=== PATIENT | male | born 1970 | race Caucasian/White ===

== ENCOUNTER 2024-12-19 15:31 | Observation (INO) ==
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
[2024-12-19] MEDS: ASPIRIN CHEW 324 MG PO STA (15:54)
--- NOTE | 2024-12-19 15:58 | XRay Report ---
XR chest 1V portable CLINICAL HISTORY: Chest pain, nonspecific COMPARISON STUDY: None FINDINGS: Heart size and pulmonary vasculature are normal. No consolidation or pleural effusion. No p neumothorax. There is an old left-sided rib fracture. IMPRESSION: No acute findings. ACT 112: Negative or not required by law. Electronically signed by: Rogelio Odonnell M.D. 12/19/2024 3:56 PM
[2024-12-19 16:00] LABS: Hematocrit (blood only) 38.4 % (42.0-52.0); Hemoglobin 13.2 g/dl (14.0-18.0); Immature Granulocytes # (auto) 0.02 K/uL (0.01-0.20); Immature Granulocytes % (auto) 0.2 %; Mean Corpuscular Hemoglobin 31.3 pg (25.0-34.0); Mean Corpuscular Volume 91.0 fL (80.0-100.0); Platelet Count 439 K/uL (130-400); RDW Standard Deviation 42.7 fL (36.4-46.3); Red Blood Count 4.22 M/uL (4.70-6.10); White Blood Count 8.29 K/ul (4.8-10.8)
[2024-12-19 16:17] LABS: Alanine Aminotransferase 13.0 U/L (7-52); Albumin Globulin Ratio 1.5 (0.9-2); Albumin Level 4.1 gm/dl (3.4-5.0); Alkaline Phosphatase 56.0 U/L (34-104); Anion Gap 7.0 (3-11); Bilirubin,Total 0.6 mg/dl (0.2-1.0); Blood Urea Nitrogen 16.0 mg/dl (6-23); Calcium 9.3 mg/dl (8.6-10.3); Carbon Dioxide 27.0 mmol/L (21-32); Chloride 105.0 mmol/L (98-107); Creatinine Clr Calc Pharmacy 75.3 ml/min; Globulin 2.8 gm/dl (2.5-4.0); Glucose 115.0 mg/dl (70-99(Fasting)); Lipase 20.0 U/L (11-82); Potassium 4.0 mmol/L (3.5-5.1); Sodium 139.0 mmol/L (136-145); Total Protein 6.9 gm/dl (6.0-8.3)
[2024-12-19] MEDS: MoRPHine SULFATE 4 MG/ML 1 ML CARP\\VIAL IV STA (16:33)
[2024-12-19] MEDS: OPTIRAY 320 125ml IV ONE (17:18)
[2024-12-19] MEDS: NITROGLYCERIN 2% OINTMENT 30GM TUBE EXT SCH (17:47)
--- NOTE | 2024-12-19 17:50 | CT Scan Report ---
Clinical history: Chest pain Technique: Axial computed tomography images were obtained of the chest before and after the administration of intravenous contrast according to the CT angiogram protocol Findings: There is mild dependent subsegmental atelectasis in the left lower lobe. The lungs otherwise appear clear without infiltrate or mass. There is no pleural effusion or pneumothorax. There is no sign of pulmonary fibrosis or other diffuse interstitial process. No endobronchial lesion is seen There is no mediastinal, hilar, or axillary adenopathy. The thoracic aorta appears unremarkable with no sign of aneurysm or dissection. There is no pericardial effusion. There is atherosclerotic plaque in the left main coronary artery. There is no definite sign of pulmonary embolism. There are bilateral renal cysts. The gallbladder has been removed. The spleen has been removed as well. Postsurgical changes are seen involving the stomach. There is a 1.3 cm low-attenuation right adrenal nodule, likely a benign adenoma. No fracture is seen. No focal osseous lesion is evident Impression: 1. Normal-appearing thoracic aorta with no aneurysm or dissection seen 2. No definite sign of pulmonary embolism 3. Mild left lower lobe atelectasis 4. Atherosclerotic plaque in the left main coronary artery 5. Bilateral renal cysts and right adrenal adenoma ACT 112: Positive. There are findings on this exam that require communication between the performing entity and the patient following Patient Test Result Information Act ([place] ACT 112) guidelines. Electronically signed by Guanako Ellis 12-19-2024 5:49 PM
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
[2024-12-19 19:48] LABS: Thyroid Stimulating Hormone 3.828 uIu/ml (0.300-4.500)
[2024-12-19] MEDS ORDERED: ONDANSETRON INJ 2 MG/ML 2 ML VIAL IV PRN (19:56)
[2024-12-19] MEDS ORDERED: POLYETHYLENE (MIRALAX) 17 GM PACK PO PRN (19:56)
[2024-12-19] MEDS: ACETAMINOPHEN 1,000 MG/100 ML VIAL IV STA (20:56)
[2024-12-19] MEDS: HEPARIN SOD 5,000 UNIT/0.5 ML VIAL SQ SCH (20:59)
[2024-12-19] MEDS: hydrALAZINE 10 MG TAB PO SCH (21:10)
[2024-12-20 06:06] LABS: Hematocrit (blood only) 34.7 % (42.0-52.0); Hemoglobin 11.7 g/dl (14.0-18.0); Mean Corpuscular Hemoglobin 31.2 pg (25.0-34.0); Mean Corpuscular Volume 92.5 fL (80.0-100.0); Platelet Count 391 K/uL (130-400); RDW Standard Deviation 44.5 fL (36.4-46.3); Red Blood Count 3.75 M/uL (4.70-6.10); White Blood Count 6.97 K/ul (4.8-10.8)
[2024-12-20 06:22] LABS: Anion Gap 6.0 (3-11); Blood Urea Nitrogen 21.0 mg/dl (6-23); Calcium 8.5 mg/dl (8.6-10.3); Carbon Dioxide 27.0 mmol/L (21-32); Chloride 106.0 mmol/L (98-107); Cholesterol 124.0 mg/dl (0-200); Creatinine Clr Calc Pharmacy 75.3 ml/min; Glucose 99.0 mg/dl (70-99(Fasting)); HDL Cholesterol 34.0 mg/dl; Potassium 3.6 mmol/L (3.5-5.1); Sodium 139.0 mmol/L (136-145); Triglycerides 123.0 mg/dl (0-150)
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
[2024-12-20] MEDS: VENLAFAXINE HCL XR 37.5 MG CAPXR PO SCH (08:40)
[2024-12-20] MEDS: FUROSEMIDE 20 MG TAB PO SCH (08:40)
[2024-12-20] MEDS: ATORVASTATIN 40 MG TAB PO SCH (08:40)
[2024-12-20] MEDS: LOSARTAN POTASSIUM 50 MG TAB PO SCH (08:40)
[2024-12-20] MEDS: LEVOTHYROXINE SODIUM 50 MCG TABLET PO SCH (08:41)
[2024-12-20] MEDS: ASPIRIN 81 MG ECTAB PO SCH (08:41)
[2024-12-20 08:42] LABS: Hemoglobin A1C 5.7 % (4.5-5.6)
--- NOTE | 2024-12-20 10:01 | Hospitalist Progress Note ---
Date of Service December 20, 2024 Assessment & Plan (1) Chest pain: (2) Hypertensive urgency: (3) Hypertension: (4) Sinus bradycardia: (5) History of CVA (cerebrovascular accident): (6) Type 2 diabetes mellitus: (7) Hyperlipidemia: (8) Hypothyroidism: Plan 54 year old male inmate from [facility] with PMH significant for NSTEMI without significant CAD (per cardiac cath in August 2023), history of HFrEF (EF 25-40%), type 2 diabetes, hypothyroidism, hyperlipidemia, nonischemic cardiomyopathy, hypertension, left sided ICH, peripheral neuropathy, asplenic, history of substance abuse, REYNOLD, depression who presented to ER on 12/19/2024 with chest pain. Chest pain History of NSTEMI without significant CAD Patient presenting with 2 days of intermittent squeezing left chest pain without radiation, SOB, diaphoresis, N/V CXR negative CTA chest negative for PE, noted atherosclerotic plaque in LMCA Troponin negative x2 EKG with T wave abnormality Received 325mg aspirin in ED Started on baby aspirin and atorvastatin Echo revealed moderate concentric LVH, LVEF 60-65%, no significant valvular disease Cardiology consult: appreciate recs Bradycardia HR sustained in 30-40s EKG x2 revealed sinus bradycardia Patient notes dizziness with standing over the last day, denies new or changed doses of any medications, ingestion of any drug or substances Clonidine discontinued Tox screen and lyme screen pending Cardiology consult: appreciate recs Hypertensive urgency, resolved BP 214/110 in ED Received hydralazine IV and PO and BP returned to normal range Continue WHE[employer] amlodipine, losartan, lasix Clonidine discontinued due to bradycardia PO hydralazine if needed for BP History of hemorrhagic stroke (Dec 2023) Admitted at [facility] with 8mm hemorrhage in posterior medial left parietal lobe s/p DCA Was started on Coreg, losartan, crestor, lasix Left AMA and missed follow up with Cardiology and Neurology Type 2 diabetes A1C 5.7 Diet controlled Hyperlipidemia Lipid panel WNL Continue statin as above Hypothyroidism TSH WNL Not currently on levothyroxine Incidental CT finding CTA chest revealed bilateral renal cysts and right adrenal adenoma Follow up outpatient DVT Prophylaxis: SQ Heparin Code Status: FULL CODE PCP: [facility] Disposition: possible DC tomorrow Patient seen in collaboration with Dr Thomas. Please see addendum. I spent a total of 60 minutes coordinating, documenting and providing care for this patient excluding time spent in the performance of separately billed services or time spent by another provider/QHP. Admission and Anticipated Discharge Date Admission Date: December 19, 2024 Supervising Physician Co-Signing Physician Notes Patient was seen and examined at bedside as a follow-up of chest pain and bradycardia. Troponin x 2 has been negative, cardiology is on board. Patient reports improvement in chest pain but reports chest pressure around 6/10 in intensity. Discussed with cardiology, urine drug screen and Lyme screen has been sent. TSH wnl. a1c 5.7, LDL 65. repeat a1c in 3 months. Continue telemetry, hold clonidine. Avoid beta blockers. f/u echo. Total time spent independently: 10 minutes I have seen and examined the patient and have discussed the case with the provider above. I agree with the assessment and plan as stated. Subjective Patient seen in room with two guards present Patient reports intermittent chest pain rated 6/10 Describes pressure like pain without radiation or associated SOB, diaphoresis, N/V Notes dizziness with standing over the last day Review of Systems Review of Systems: All systems reviewed & are unremarkable except as noted in HPI & below Physical Exam Physical Exam: General/Psych: WD/WN, laying in bed, NAD, conversing easily Head: normocephalic, atraumatic Eyes: normal inspection, PERRL, conjunctivae pink ENT: external ear and nose normal, oropharynx normal Neck: normal visual inspection, trachea midline Respiratory: normal respiratory effort, lungs clear to auscultation, no wheeze/rales/rhonchi, no accessory muscle use Cardiovascular: regular rate and rhythm, no murmur/rub/gallop, no JVD Extremities: no cyanosis or clubbing, normal peripheral pulses, no BLE edema Abdomen/GI: normal bowel sounds, soft, nontender Neurologic/MSK: A+Ox3, motor strength 5/5, moves all extremities Skin: no rashes, normal color, warm and dry Results & Data Results & Data Vital Signs (Past 12 Hours) Vital Signs Temp Pulse Pulse Resp BP BP Pulse Ox 12/20/24 09:00 36 L 12/20/24 07:39 36.6 C 41 L 18 122/73 96 12/20/24 02:54 36.4 C L 42 L 18 120/72 96 12/19/24 23:25 36.3 C L 42 L 18 136/81 96 O2 Del Method 12/20/24 09:00 12/20/24 07:39 Room Air 12/20/24 02:54 Room Air 12/19/24 23:25 Room Air Laboratory Results Short CBC 12/19/24 12/20/24 Range/Units 15:41 05:26 WBC 8.29 6.97 (4.8-10.8) K/ul Hgb 13.2 L 11.7 L (14.0-18.0) g/dl Hct 38.4 L 34.7 L (42.0-52.0) % Plt Count 439 H 391 (130-400) K/uL BMP 12/19/24 12/20/24 15:41 05:26 Sodium 139 139 Potassium 4.0 3.6 Chloride 105 106 Carbon Dioxide 27 27 BUN 16 21 Creatinine 1.29 1.29 Glucose 115 H 99 Calcium 9.3 8.5 L Liver Function 12/19/24 Range/Units 15:41 Total Bilirubin 0.6 (0.2-1.0) mg/dl AST 16 (13-39) U/L ALT 13 (7-52) U/L Alkaline Phosphatase 56 (34-104) U/L Albumin 4.1 (3.4-5.0) gm/dl I have independently reviewed and interpreted patient's labs including CBC and BMP Medications Administered Current Inpatient Medications Acetaminophen (Acetaminophen 325 Mg Tab) 650 mg PO Q4H PRN PRN Reason: Pain or Fever Stop: 01/18/25 19:55 Amlodipine Besylate (Amlodipine Besylate 5 Mg Tab) 10 mg PO DAILY GIA Stop: 01/19/25 08:59 Last Admin: 12/20/24 08:41 Dose: 10 mg Aspirin (Aspirin 81 Mg Ectab) 81 mg PO DAILY GIA Stop: 01/19/25 08:59 Last Admin: 12/20/24 08:41 Dose: 81 mg Atorvastatin Calcium (Atorvastatin 40 Mg Tab) 40 mg PO QAM GIA Stop: 01/19/25 08:59 Last Admin: 12/20/24 08:40 Dose: 40 mg Furosemide (Furosemide 20 Mg Tab) 20 mg PO DAILY GIA Stop: 01/19/25 08:59 Last Admin: 12/20/24 08:40 Dose: 20 mg Heparin Sodium (Porcine) (Heparin Sod 5,000 Unit/0.5 Ml Vial) 5,000 units SQ Q12 GIA Stop: 01/18/25 20:59 Last Admin: 12/20/24 08:44 Dose: 5,000 units Levothyroxine Sodium (Levothyroxine Sodium 50 Mcg Tablet) 50 mcg PO DAILY GIA Stop: 01/19/25 08:59 Last Admin: 12/20/24 08:41 Dose: 50 mcg Losartan Potassium (Losartan Potassium 50 Mg Tab) 100 mg PO DAILY GIA Stop: 01/19/25 08:59 Last Admin: 12/20/24 08:40 Dose: 100 mg Nitroglycerin (Nitroglycerin 2% Ointment 30gm Tube) 2 inch EXT Q6H PRN PRN Reason: Chest Pain Stop: 01/18/25 17:44 Ondansetron HCl (Ondansetron Inj 2 Mg/Ml 2 Ml Vial) 4 mg IV Q6H PRN PRN Reason: Nausea Stop: 01/18/25 19:55 Polyethylene Glycol (Polyethylene (Miralax) 17 Gm Pack) 17 gm PO DAILY PRN PRN Reason: Constipation Stop: 01/18/25 19:55 Potassium Chloride (Potassium Chloride Crtab 20 Meq Tabcr) 20 meq PO QAM GIA Stop: 01/19/25 09:44 Trazodone HCl (Trazodone Hcl 100 Mg Tab) 300 mg PO HS GIA Stop: 01/18/25 20:59 Last Admin: 12/19/24 20:58 Dose: 300 mg Venlafaxine HCl (Venlafaxine Hcl Xr 37.5 Mg Capxr) 37.5 mg PO DAILY GIA Stop: 01/19/25 08:59 Last Admin: 12/20/24 08:40 Dose: 37.5 mg ECG Additional Comments: I have independently reviewed and interpreted patient's admitting EKG which revealed: sinus bradycardia at a rate of 38bpm (1) Chest pain Chest pain type: unspecified Qualified Code(s): R07.9 - Chest pain, unspecified (3) Hypertension Hypertension type: unspecified Qualified Code(s): I10 - Essential (primary) hypertension
[2024-12-20 10:48] LABS: Magnesium 2.1 mg/dl (1.7-2.4)
[2024-12-20] MEDS: POTASSIUM CHLORIDE CRTAB 20 MEQ TABCR PO SCH (11:03)
[2024-12-20 12:49] LABS: Amphetamines+Metham, Urine Neg (Neg); MDMA (Ecstacy), Urine Pos (Neg); Marijuana, Urine Neg (Neg)
[2024-12-20] MEDS: ACETAMINOPHEN 325 MG TAB PO PRN (17:44)
--- NOTE | 2024-12-20 18:00 | Electrocardiogram Report ---
Test Reason : Blood Pressure : */* mmHG Vent. Rate : 44 BPM Atrial Rate : 44 BPM P-R Int : 160 ms QRS Dur : 96 ms QT Int : 524 ms P-R-T Axes : 37 62 99 degrees QTcB Int : 448 ms Marked sinus bradycardia Abnormal ECG No previous ECGs available Confirmed by Moises Orlelana ([id number]) on 12/20/2024 6:00:08 PM Referred By: Angy SCI Confirmed By: Moises Orellana
--- NOTE | 2024-12-20 18:18 | Electrocardiogram Report ---
Test Reason : Blood Pressure : */* mmHG Vent. Rate : 38 BPM Atrial Rate : 38 BPM P-R Int : 154 ms QRS Dur : 102 ms QT Int : 586 ms P-R-T Axes : -6 65 79 degrees QTcB Int : 465 ms Marked sinus bradycardia Low voltage QRS Nonspecific T wave abnormality Prolonged QT Abnormal ECG When compared with ECG of 19-Dec-2024 15:40, (unconfirmed) T wave inversion now evident in Lateral leads Confirmed by Moises Orellana ([id number]) on 12/20/2024 6:17:33 PM Referred By: Angy SCI Confirmed By: Moises Orellana
--- NOTE | 2024-12-20 18:26 | Electrocardiogram Report ---
Test Reason : Blood Pressure : */* mmHG Vent. Rate : 46 BPM Atrial Rate : 46 BPM P-R Int : 160 ms QRS Dur : 108 ms QT Int : 560 ms P-R-T Axes : 49 61 87 degrees QTcB Int : 490 ms Sinus bradycardia Low voltage QRS Prolonged QT Abnormal ECG When compared with ECG of 20-Dec-2024 05:54, (unconfirmed) T wave inversion no longer evident in Lateral leads Confirmed by Moises Orellana ([id number]) on 12/20/2024 6:26:15 PM Referred By: Angy SCI Confirmed By: Moises Orellana
--- NOTE | 2024-12-20 20:46 | Communication Note ---
Date of Service: December 20, 2024
[2024-12-20] MEDS: NITROGLYCERIN 2% OINTMENT 30GM TUBE EXT PRN (21:01)
[2024-12-20 21:51] LABS: Partial Thromboplastin Time 27 Seconds (21-31)
[2024-12-20] MEDS: INFLUENZA VACC TS2025-26(6m+)/PF (IIV3) 0.5mL Syr IM ONE (21:53)
[2024-12-20] MEDS: NITROGLYCERIN SL 0.4 MG/TAB TAB SL PRN (21:54)
[2024-12-21 08:08] LABS: Hematocrit (blood only) 37.4 % (42.0-52.0); Hemoglobin 12.8 g/dl (14.0-18.0); Mean Corpuscular Hemoglobin 32.2 pg (25.0-34.0); Mean Corpuscular Volume 94.0 fL (80.0-100.0); Platelet Count 405 K/uL (130-400); RDW Standard Deviation 45.4 fL (36.4-46.3); Red Blood Count 3.98 M/uL (4.70-6.10); White Blood Count 12.28 K/ul (4.8-10.8)
[2024-12-21 08:29] LABS: Anion Gap 6.0 (3-11); Blood Urea Nitrogen 19.0 mg/dl (6-23); Calcium 8.5 mg/dl (8.6-10.3); Carbon Dioxide 27.0 mmol/L (21-32); Chloride 107.0 mmol/L (98-107); Creatinine Clr Calc Pharmacy 76.6 ml/min; Glucose 98.0 mg/dl (70-99(Fasting)); Magnesium 2.0 mg/dl (1.7-2.4); Potassium 4.0 mmol/L (3.5-5.1); Sodium 140.0 mmol/L (136-145)
--- NOTE | 2024-12-21 08:38 | Hospitalist Progress Note ---
Date of Service December 21, 2024 Assessment & Plan (1) Chest pain: (2) Hypertensive urgency: (3) Hypertension: (4) Sinus bradycardia: (5) History of CVA (cerebrovascular accident): (6) Type 2 diabetes mellitus: (7) Hyperlipidemia: (8) Hypothyroidism: Plan 54 year old male inmate from [facility] with PMH significant for NSTEMI without significant CAD (per cardiac cath in August 2023), history of HFrEF (EF 25-40%), type 2 diabetes, hypothyroidism, hyperlipidemia, nonischemic cardiomyopathy, hypertension, left sided ICH, peripheral neuropathy, asplenic, history of substance abuse, REYNOLD, depression who presented to ER on 12/19/2024 with chest pain. Chest pain History of NSTEMI without significant CAD -Patient presenting with 2 days of intermittent squeezing left chest pain without radiation, SOB, diaphoresis, N/V -CXR negative;CTA chest negative for PE, noted atherosclerotic plaque in LMCA -Troponin negative x2; EKG with T wave abnormality -Received 325mg aspirin in ED; Started on baby aspirin and atorvastatin -Echo revealed moderate concentric LVH, LVEF 60-65%, no significant valvular disease Bradycardia HR sustained in 30-40s, clonidine discontinued -EKG x2 revealed sinus bradycardia; Lyme neg Tox screen + opiates/ecstasy, could be contributing to bradycardia Slowly improving, heart rate in the 40s50s over the past 24 hours Hypertensive urgency -BP 214/110 in ED; SBP still running in the [id number] despite medication changes -Received hydralazine IV and PO and BP returned to normal range -Continue [employer] amlodipine, losartan, lasix -Clonidine discontinued due to bradycardia -PO hydralazine if needed for BP History of hemorrhagic stroke (Dec 2023) -Admitted at [facility] with 8mm hemorrhage in posterior medial left parietal lobe s/p DCA -Was started on Coreg, losartan, crestor, lasix -Left AMA and missed follow up with Cardiology and Neurology Type 2 diabetes -A1C 5;Diet controlled Hyperlipidemia -Lipid panel WNL; Continue statin as above Hypothyroidism -TSH WNL;Not currently on levothyroxine Incidental CT finding -CTA chest revealed bilateral renal cysts and right adrenal adenoma; Follow up outpatient DVT Prophylaxis: SQ Heparin Code Status: FULL CODE PCP: [facility] Disposition: possible DC tomorrow I spent a total of 35 minutes coordinating, documenting and providing care for this patient excluding time spent in the performance of separately billed services or time spent by another provider/QHP. Admission and Anticipated Discharge Date Admission Date: December 19, 2024 Supervising Physician Co-Signing Physician Notes Patient was seen and examined at bedside as a follow-up of chest pain and bradycardia. Troponin x 2 has been negative, cardiology is on board. Cardiac chest pain ruled out, plan to control BP and trial m. relaxant and diclo gel. UDS +ve for opiates and MDMA [pt declines drug use, f/u mdma level]. TSH wnl. Lyme screen neg. ECHO w/ EF of 60-65%, LV wall motion is normal. A1c 5.7, LDL 65. repeat a1c in 3 months. Orlin likely iso clonidine, avoid clonidine and AV wilber blocking agents. Uncontrolled HTN, c/t titrate BP meds, hydralazine added. Total time spent independently: 15 minutes I have seen and examined the patient and have discussed the case with the provider above. I agree with the assessment and plan as stated. Subjective Patient seen and examined. No apparent distress. Still reports consistent chest pain. Denies any shortness of breath associated with this. Denies any worsening chest pain with movement. Still reports some dizziness. Review of Systems Review of Systems: All systems reviewed & are unremarkable except as noted in HPI & below Physical Exam Constitutional: WD/WN, vitals as above Eyes: PERRL, conjunctivae normal, anicteric sclerae ENMT: external ear and nose normal, oropharynx normal Neck: trachea midline, no thyromegaly Respiratory: normal respiratory effort, lungs clear to auscultation Cardiovascular: RRR, no murmur, no edema Gastrointestinal (Abdomen): normal bowel sounds, soft, nontender, no hepatosplenomegaly Musculoskeletal: no cyanosis or clubbing, extremities motor strength 5/5 Skin: no rashes, warm and dry Neurologic: PERRL, EOMI, accommodation nl, no face palsy, no dysarthria Psychiatric: A+Ox3, euthymic affect Genitourinary: no testicular masses, no penis abnormality Lymphatic: no cervical or axillary lymphadenopathy Results & Data Results & Data Vital Signs (Past 12 Hours) Vital Signs Temp Pulse Pulse Resp BP BP Pulse Ox 12/21/24 07:53 36.5 C 56 L 20 183/95 H 96 12/21/24 03:01 36.7 C 49 L 18 178/97 H 95 12/20/24 23:09 36.7 C 62 18 155/83 H 96 12/20/24 22:00 82 20 137/84 94 12/20/24 21:59 80 12/20/24 21:53 73 20 168/81 H 95 12/20/24 20:42 36.7 C 54 L 20 174/86 H 96 O2 Del Method 12/21/24 07:53 Room Air 12/21/24 03:01 Room Air 12/20/24 23:09 Room Air 12/20/24 22:00 Room Air 12/20/24 21:59 12/20/24 21:53 Room Air 12/20/24 20:42 Room Air Diagnostic Findings Laboratory Results WBC 12.28 K/ul (4.8-10.8) H 12/21/24 07:43 RBC 3.98 M/uL (4.70-6.10) L 12/21/24 07:43 Hgb 12.8 g/dl (14.0-18.0) L 12/21/24 07:43 Hct 37.4 % (42.0-52.0) L 12/21/24 07:43 MCV 94.0 fL (80.0-100.0) 12/21/24 07:43 MCH 32.2 pg (25.0-34.0) 12/21/24 07:43 MCHC 34.2 g/dL (32.0-36.0) 12/21/24 07:43 RDW Std Deviation 45.4 fL (36.4-46.3) 12/21/24 07:43 RDW Coeff of Genet 13.2 % (11.5-14.5) 12/21/24 07:43 Plt Count 405 K/uL (130-400) H 12/21/24 07:43 MPV 10.6 fL (9.4-12.4) 12/21/24 07:43 Immature Gran % (Auto) 0.2 % 12/19/24 15:41 Neut % (Auto) 59.6 % 12/19/24 15:41 Lymph % (Auto) 28.1 % 12/19/24 15:41 [place] % (Auto) 8.0 % 12/19/24 15:41 Eos % (Auto) 2.7 % 12/19/24 15:41 Baso % (Auto) 1.4 % 12/19/24 15:41 Neut # (Auto) 4.94 K/uL (1.40-6.50) 12/19/24 15:41 Lymph # (Auto) 2.33 K/uL (1.20-3.40) 12/19/24 15:41 [place] # (Auto) 0.66 K/uL (0.11-0.59) H 12/19/24 15:41 Eos # (Auto) 0.22 K/uL (0.00-0.50) 12/19/24 15:41 Baso # (Auto) 0.12 K/uL (0.00-0.20) 12/19/24 15:41 Immature Gran # (Auto) 0.02 K/uL (0.01-0.20) 12/19/24 15:41 APTT 27 Seconds (21-31) 12/20/24 21:03 PTT Ratio 1.0 12/20/24 21:03 Sodium 140 mmol/L (136-145) 12/21/24 07:43 Potassium 4.0 mmol/L (3.5-5.1) 12/21/24 07:43 Chloride 107 mmol/L (98-107) 12/21/24 07:43 Carbon Dioxide 27 mmol/L (21-32) 12/21/24 07:43 Anion Gap 6 (3-11) 12/21/24 07:43 BUN 19 mg/dl (6-23) 12/21/24 07:43 Creatinine 1.24 mg/dl (0.6-1.4) 12/21/24 07:43 Est Cr Clr Drug Dosing 76.6 ml/min 12/21/24 07:43 eGFR 69.09 12/21/24 07:43 BUN/Creatinine Ratio 15.3 (10-20) 12/21/24 07:43 Glucose 98 mg/dl (70-99(Fasting)) 12/21/24 07:43 Estimat Average Glucose 117 mg/dl 12/20/24 05:26 Hemoglobin A1c 5.7 % (4.5-5.6) H 12/20/24 05:26 Calcium 8.5 mg/dl (8.6-10.3) L 12/21/24 07:43 Phosphorus 3.3 mg/dl (2.5-4.9) 12/21/24 07:43 Magnesium 2.0 mg/dl (1.7-2.4) 12/21/24 07:43 Total Bilirubin 0.6 mg/dl (0.2-1.0) 12/19/24 15:41 AST 16 U/L (13-39) 12/19/24 15:41 ALT 13 U/L (7-52) 12/19/24 15:41 Alkaline Phosphatase 56 U/L (34-104) 12/19/24 15:41 Troponin I High Sens 11.2 pg/ml (0-20) 12/20/24 21:03 Total Protein 6.9 gm/dl (6.0-8.3) 12/19/24 15:41 Albumin 4.1 gm/dl (3.4-5.0) 12/19/24 15:41 Globulin 2.8 gm/dl (2.5-4.0) 12/19/24 15:41 Albumin/Globulin Ratio 1.5 (0.9-2) 12/19/24 15:41 Triglycerides 123 mg/dl (0-150) 12/20/24 05:26 Cholesterol 124 mg/dl (0-200) 12/20/24 05:26 LDL Cholesterol, Calc 65 mg/dl 12/20/24 05:26 VLDL Cholesterol, Calc 25 mg/dl (0-30) 12/20/24 05:26 HDL Cholesterol 34 mg/dl 12/20/24 05:26 Cholesterol/HDL Ratio 3.6 (0-5) 12/20/24 05:26 Lipase 20 U/L (11-82) 12/19/24 15:41 TSH 3.828 uIu/ml (0.300-4.500) 12/19/24 18:58 Nasal Screen MRSA (PCR) Negative (Negative) 12/19/24 20:25 Urine Opiates Screen Pos (Neg) H 12/20/24 11:46 Ur Methadone, Qual Neg (Neg) 12/20/24 11:46 Urine Fentanyl Screen Neg (Neg) 12/20/24 11:46 Urine Barbiturates Neg (Neg) 12/20/24 11:46 Ur Phencyclidine (PCP) Neg (Neg) 12/20/24 11:46 U Amphetamin/Meth Scrn Neg (Neg) 12/20/24 11:46 MDMA (Ecstasy) Screen Pos (Neg) H 12/20/24 11:46 U Benzodiazepines Scrn Neg (Neg) 12/20/24 11:46 Ur Cocaine Metabolite Neg (Neg) 12/20/24 11:46 U Marijuana (THC) Screen Neg (Neg) 12/20/24 11:46 Lyme Disease Screen Negative (Negative) 12/20/24 10:48 Impressions Chest X-Ray 12/19/24 15:34 XR chest 1V portable CLINICAL HISTORY: Chest pain, nonspecific COMPARISON STUDY: None FINDINGS: Heart size and pulmonary vasculature are normal. No consolidation or pleural effusion. No pneumothorax. There is an old left-sided rib fracture. IMPRESSION: No acute findings. ACT 112: Negative or not required by law. Electronically signed by: Rogelio Odonnell M.D. 12/19/2024 3:56 PM Chest CTA 12/19/24 16:51 Clinical history: Chest pain Technique: Axial computed tomography images were obtained of the chest before and after the administration of intravenous contrast according to the CT angiogram protocol Findings: There is mild dependent subsegmental atelectasis in the left lower lobe. The lungs otherwise appear clear without infiltrate or mass. There is no pleural effusion or pneumothorax. There is no sign of pulmonary fibrosis or other diffuse interstitial process. No endobronchial lesion is seen There is no mediastinal, hilar, or axillary adenopathy. The thoracic aorta appears unremarkable with no sign of aneurysm or dissection. There is no pericardial effusion. There is atherosclerotic plaque in the left main coronary artery. There is no definite sign of pulmonary embolism. There are bilateral renal cysts. The gallbladder has been removed. The spleen has been removed as well. Postsurgical changes are seen involving the stomach. There is a 1.3 cm low-attenuation right adrenal nodule, likely a benign adenoma. No fracture is seen. No focal osseous lesion is evident Impression: 1. Normal-appearing thoracic aorta with no aneurysm or dissection seen 2. No definite sign of pulmonary embolism 3. Mild left lower lobe atelectasis 4. Atherosclerotic plaque in the left main coronary artery 5. Bilateral renal cysts and right adrenal adenoma ACT 112: Positive. There are findings on this exam that require communication between the performing entity and the patient following Patient Test Result Information Act ([place] ACT 112) guidelines. Electronically signed by Guanako Ellis 12-19-2024 5:49 PM (1) Chest pain Chest pain type: unspecified Qualified Code(s): R07.9 - Chest pain, unspecified (3) Hypertension Hypertension type: unspecified Qualified Code(s): I10 - Essential (primary) hypertension
--- NOTE | 2024-12-21 08:54 | Cardiology Progress Note ---
Date of Service December 21, 2024 Assessment & Plan (1) Hypertensive urgency: (2) Sinus bradycardia: (3) Chest pain: Plan Assessment: Patient is a 54 year old male with history of non ischemic cardiomyopathy, substance abuse, only mild CAD per cath in August 2023 (EF 25% at the time), history of difficult to control hypertension, non compliance, hemorrhagic CVA, who was admitted with chest pain, hypertensive urgency and sinus bradycardia. Plan: Chest pain - atypical for cardiac origin - Remains Reproducible with palpation to the chest wall -HS troponin negative x3. Known history of non-ischemic cardiomyopathy. Prior cardiac cath in August 2023 demonstrating mild illuminal irregularities. EF was 25% at that time and patient had left AMA following cath. He had a repeat echocardiogram yesterday showing normal LVEF 60-65% with no wall motion abnormalities and no valvular disease. There is evidence of moderate LVH which is expected given long standing poorly controlled HTN. -EKG demonstrating sinus bradycardia with T wave abnormality in lateral leads. Compared with prior EKG's in [facility], this T wave abnormality has been present intermittently. Upon further review today with Dr. Perez, an intermittent second degree AV block is noted 2:1; however, resolves with an increase in heart rate. Will continue to monitor. Avoid any AV wilber blocking agents. Clonidine was placed on hold at time of admission as this has a known potential to cause decreased heart rates. Hypertensive urgency -BP improved with IV hydralazine and nitro ointment. Now discontinued -Continue losartan 100 mg, amlodipine 10 mg, furosemide 20 mg -Clonidine discontinued due to bradycardia. -Avoid AV wilber blocking therapies -Consider oral hydralazine for BP if needed -Current blood pressure reading following administration of AM medications is now 131/76. Sinus bradycardia, possible Mobitz type I 2:1 AV block on telemetry -Lyme screen obtained, negative -tox screen is positive for opiates and MDMA -Continue to avoid any AV wilber blocking agents -Continue to hold clonidine due to bradycardia -appropriate BP Regimen outlined above Case has been discussed with Dr. Perez. Further recommendations regarding plan of care as per his assessment. I spent a total of 30 minutes on the date of service in preparation, delivery, documentation of the care provided to the patient excluding any time spent in the performance of separately billed services. ESEQUIEL [facility] Admission and Anticipated Discharge Date Admission Date: December 19, 2024 Supervising Physician Co-Signing Physician Notes Patient assessment plan as well outlined by advanced provider above. Bradycardia essentially resolved with Mobitz type I AV block 2-1 conduction. Intermittently on presentation. Appropriate heart rate response to activity exercise. No indications for pacemaker No coronary disease on recent cardiac catheterization LV systolic function has returned to normal Plan as above Subjective 12/21/2024: Patient seen and examined in follow up today. Feeling fair. Endorses persistent non-radiating chest pain. No associated shortness of breath, dizziness, near syncope or syncope. He has been up to the restroom without i ssue. Labs, vitals, diagnostics, telemetry and documentation reviewed. Telemetry reviewed showing SB/SR rates 48-65bpm. Of note, when patient's heart rate drops below 55bpm he develops intermittent Mobitz type Isecond degree heart block with 2:1 conduction. Asymptomatic. Heart rates increase with any activity. No pauses. Review of Systems Review of Systems: All systems reviewed & are unremarkable except as noted in HPI & below Physical Exam Constitutional: well developed and well nourished; no acute distress and not ill appearing Neck: normal visual inspection and trachea midline Respiratory: normal respiratory effort, lungs clear to auscultation Cardiovascular: Rate/Rhythm: + bradycardic Heart Sounds: normal S1 and normal S2; no murmur Vessels: dorsalis pedis pulses present; no JVD Extremities: no edema Skin: no rashes, warm and dry + pallor Psychiatric: A+Ox3, euthymic affect Results & Data Vital Signs (Past 12 Hours) Vital Signs Temp Pulse Pulse Resp BP BP Pulse Ox 12/21/24 07:53 36.5 C 56 L 20 183/95 H 96 12/21/24 03:01 36.7 C 49 L 18 178/97 H 95 12/20/24 23:09 36.7 C 62 18 155/83 H 96 12/20/24 22:00 82 20 137/84 94 12/20/24 21:59 80 12/20/24 21:53 73 20 168/81 H 95 O2 Del Method 12/21/24 07:53 Room Air 12/21/24 03:01 Room Air 12/20/24 23:09 Room Air 12/20/24 22:00 Room Air 12/20/24 21:59 12/20/24 21:53 Room Air Laboratory Results Cardiac Enzymes 12/20/24 Range/Units 21:03 Troponin I High Sens 11.2 (0-20) pg/ml Coagulation 12/20/24 Range/Units 21:03 APTT 27 (21-31) Seconds CBC 12/21/24 Range/Units 07:43 WBC 12.28 H (4.8-10.8) K/ul RBC 3.98 L (4.70-6.10) M/uL Hgb 12.8 L (14.0-18.0) g/dl Hct 37.4 L (42.0-52.0) % Plt Count 405 H (130-400) K/uL Comprehensive Metabolic Panel 12/21/24 Range/Units 07:43 Sodium 140 (136-145) mmol/L Potassium 4.0 (3.5-5.1) mmol/L Chloride 107 (98-107) mmol/L Carbon Dioxide 27 (21-32) mmol/L BUN 19 (6-23) mg/dl Creatinine 1.24 (0.6-1.4) mg/dl Glucose 98 (70-99(Fasting)) mg/dl Calcium 8.5 L (8.6-10.3) mg/dl Intake and Output 12/20/24 12/21/24 12/21/24 22:59 06:59 14:59 Other: # Unmeasured Voids 1 2 Weight 92.8 kg Weight Measurement Method Built in [facility] PG Care Time/CCT Total # of Minutes Spent Total Time Spent with Patient: Total time spent is greater than 50% in coordination of care (as documented) at patient's floor/unit and/or counseling patient: [place] [address] SUB INP/OBS CARE 3/50MIN Patient Type Established Diagnoses Hypertensive urgency I16.0 Sinus bradycardia R00.1 Chest pain R07.9 Chest pain type: unspecified Time Spent (min) 30 (3) Chest pain Chest pain type: unspecified Qualified Code(s): R07.9 - Chest pain, unspecified
[2024-12-21] MEDS: METHOCARBAMOL 500 MG TABLET PO PRN (11:00)
[2024-12-21] MEDS: DICLOFENAC SOD 1% GEL 100 GM TUBE EXT SCH (11:57)
[2024-12-22 08:20] LABS: Hematocrit (blood only) 40.5 % (42.0-52.0); Hemoglobin 13.2 g/dl (14.0-18.0); Mean Corpuscular Hemoglobin 31.0 pg (25.0-34.0); Mean Corpuscular Volume 95.1 fL (80.0-100.0); Platelet Count 411 K/uL (130-400); RDW Standard Deviation 46.7 fL (36.4-46.3); Red Blood Count 4.26 M/uL (4.70-6.10)
[2024-12-22 08:38] LABS: Alanine Aminotransferase 17.0 U/L (7-52); Albumin Globulin Ratio 1.5 (0.9-2); Albumin Level 4.1 gm/dl (3.4-5.0); Alkaline Phosphatase 66.0 U/L (34-104); Anion Gap 8.0 (3-11); Bilirubin,Total 0.4 mg/dl (0.2-1.0); Blood Urea Nitrogen 17.0 mg/dl (6-23); Calcium 8.8 mg/dl (8.6-10.3); Carbon Dioxide 27.0 mmol/L (21-32); Chloride 104.0 mmol/L (98-107); Creatinine Clr Calc Pharmacy 80.9 ml/min; Globulin 2.7 gm/dl (2.5-4.0); Glucose 162.0 mg/dl (70-99(Fasting)); Potassium 4.0 mmol/L (3.5-5.1); Sodium 139.0 mmol/L (136-145); Total Protein 6.8 gm/dl (6.0-8.3)
[2024-12-22 08:42] LABS: Immature Granulocytes # (auto) 0.03 K/uL (0.01-0.20); Immature Granulocytes % (auto) 0.2 %; Polychromasia 1+; White Blood Count 12.75 K/ul (4.8-10.8)
[2024-12-22 11:11] VITALS: BP 126/75; PULSE 70; RESP 19; TEMP 97.5; O2SAT 94
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
--- NOTE | 2024-12-25 14:47 | Electrocardiogram Report ---
Test Reason : Blood Pressure : */* mmHG Vent. Rate : 53 BPM Atrial Rate : 53 BPM P-R Int : 148 ms QRS Dur : 102 ms QT Int : 506 ms P-R-T Axes : 57 64 117 degrees QTcB Int : 474 ms Sinus bradycardia Low voltage QRS Cannot rule out Inferior infarct , age undetermined Abnormal ECG When compared with ECG of 20-Dec-2024 09:47, Nonspecific T wave abnormality now evident in Inferior leads Confirmed by Brien Pollard ([id number]) on 12/25/2024 2:47:01 PM Referred By: Angy SCI Confirmed By: Brien Pollard
[2024-12-26 13:22] LABS: Hydrocodone Urine NEGATIVE ng/mL (<50); Hydromor Urine NEGATIVE ng/mL (<50); MDA negative; MDEA negative; MDMA (Ecstasy) Urine, Confirm negative; Noroxycodone Urine NEGATIVE ng/mL (<50); Oxymorph Urine NEGATIVE ng/mL (<50)
== END 2024-12-22 16:53 | DRG 313 ==
LOC: ED 15:31 → SUATTDRO 18:48 → 2E 18:48 → INTOOBSV 18:48 → 2E 19:35 → 2S 12-20 14:31

== ENCOUNTER 2024-12-26 22:52 | Observation (INO) ==
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
[2024-12-26] MEDS: MoRPHine SULFATE 4 MG/ML 1 ML CARP\\VIAL IV STA (23:17)
[2024-12-26] MEDS: ONDANSETRON INJ 2 MG/ML 2 ML VIAL IV STA (23:17)
[2024-12-26 23:40] LABS: Hematocrit (blood only) 37.1 % (42.0-52.0); Hemoglobin 12.7 g/dl (14.0-18.0); Immature Granulocytes # (auto) 0.03 K/uL (0.01-0.20); Immature Granulocytes % (auto) 0.3 %; Mean Corpuscular Hemoglobin 31.4 pg (25.0-34.0); Mean Corpuscular Volume 91.8 fL (80.0-100.0); Platelet Count 417 K/uL (130-400); RDW Standard Deviation 43.0 fL (36.4-46.3); Red Blood Count 4.04 M/uL (4.70-6.10); White Blood Count 11.44 K/ul (4.8-10.8)
--- NOTE | 2024-12-26 23:45 | XRay Report ---
Chest radiograph, one view History: Chest pain Comparison: None Findings: Single AP view of the chest performed. No focal consolidation or pleural effusion. No pneumothorax. The cardiomediastinal silhouette is within normal limits. Normal pulmonary vascularity. No evidence for lymphadenopathy. No visualized bony or soft tissue abnormality. Impression: Normal chest radiograph Electronically signed by Moises Lewis 12-26-2024 11:42 PM
[2024-12-26 23:57] LABS: Alanine Aminotransferase 15.0 U/L (7-52); Albumin Globulin Ratio 1.7 (0.9-2); Albumin Level 4.2 gm/dl (3.4-5.0); Alkaline Phosphatase 57.0 U/L (34-104); Anion Gap 6.0 (3-11); Bilirubin,Total 0.4 mg/dl (0.2-1.0); Blood Urea Nitrogen 16.0 mg/dl (6-23); Calcium 9.0 mg/dl (8.6-10.3); Carbon Dioxide 26.0 mmol/L (21-32); Chloride 106.0 mmol/L (98-107); Creatinine Clr Calc Pharmacy 73.7 ml/min; Globulin 2.5 gm/dl (2.5-4.0); Glucose 103.0 mg/dl (70-99(Fasting)); Lipase 30.0 U/L (11-82); Potassium 3.8 mmol/L (3.5-5.1); Sodium 138.0 mmol/L (136-145); Total Protein 6.7 gm/dl (6.0-8.3)
[2024-12-27 00:08] LABS: INR 1.0 (0.9-1.1); Prothrombin Time 10.7 Seconds (9.0-12.0)
[2024-12-27] MEDS: NITROGLYCERIN 2% OINTMENT 30GM TUBE EXT STA (00:55)
[2024-12-27] MEDS: LIDOCAINE 5% 1 PATCH TD STA (01:54)
[2024-12-27] MEDS: LABETALOL HCL IV 5 MG/ML 20ML IV STA (02:06)
[2024-12-27 02:14] LABS: Magnesium 1.8 mg/dl (1.7-2.4)
[2024-12-27] MEDS: ACETAMINOPHEN 1,000 MG/100 ML VIAL IV STA (03:00)
--- NOTE | 2024-12-27 03:33 | CT Scan Report ---
EXAM: CT head/brain wo con CLINICAL HISTORY: rodriguez, htn crisis TECHNIQUE: Multiple axial images were obtained from the skull base to the vertex without contrast. A CT scan was performed according to ALARA (as low as reasonably achievable). COMPARISON: None. FINDINGS: The brain demonstrates normal morphology, attenuation, and volume for age. There is no evidence of space-occupying lesion, hemorrhage, edema, mass effect, midline shift, extra-axial collection, or hydrocephalus. The ventricles, sulci, and basal cisterns are symmetric and normal in size and configuration. [place]-white matter differentiation is preserved. The visualized paranasal sinuses and mastoid air cells are well aerated. Orbital contents are within normal limits. Bony structures are intact. IMPRESSION: 1. No evidence of acute intracranial abnormality is demonstrated. Electronically signed by Papo Priest 12-27-2024 03:33 AM
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
[2024-12-27] MEDS ORDERED: PROMETHAZINE 6.25 MG/50.25 ML BAG IV PRN (03:43)
[2024-12-27] MEDS ORDERED: MoRPHine SULFATE 4 MG/ML 1 ML CARP\\VIAL IV PRN (03:43)
[2024-12-27] MEDS ORDERED: LORazepam 0.5 MG TAB PO PRN (03:43)
[2024-12-27] MEDS ORDERED: GLUCOSE 40% GEL 15 GM TUBE PO PRN (05:01)
[2024-12-27] MEDS ORDERED: GLUCAGON FOR INJ 1 MG VIAL SQ PRN (05:01)
[2024-12-27] MEDS ORDERED: CARBOHYDRATES FOR HYPOGLYCEMIA PO PRN (05:01)
[2024-12-27] MEDS ORDERED: DEXTROSE 50% 50 ML SYRINGE IV PRN (05:01)
[2024-12-27] MEDS ORDERED: GLUCOSE 10 TAB/TUBE PO PRN (05:01)
[2024-12-27 05:10] LABS: Hematocrit (blood only) 38.3 % (42.0-52.0); Hemoglobin 13.2 g/dl (14.0-18.0); Immature Granulocytes # (auto) 0.04 K/uL (0.01-0.20); Immature Granulocytes % (auto) 0.3 %; Mean Corpuscular Hemoglobin 31.8 pg (25.0-34.0); Mean Corpuscular Volume 92.3 fL (80.0-100.0); Platelet Count 421 K/uL (130-400); RDW Standard Deviation 43.8 fL (36.4-46.3); Red Blood Count 4.15 M/uL (4.70-6.10); White Blood Count 14.74 K/ul (4.8-10.8)
[2024-12-27 05:26] LABS: Anion Gap 7.0 (3-11); Blood Urea Nitrogen 15.0 mg/dl (6-23); Calcium 9.0 mg/dl (8.6-10.3); Carbon Dioxide 26.0 mmol/L (21-32); Chloride 105.0 mmol/L (98-107); Creatinine Clr Calc Pharmacy 82.7 ml/min; Glucose 109.0 mg/dl (70-99(Fasting)); Potassium 3.7 mmol/L (3.5-5.1); Sodium 138.0 mmol/L (136-145)
[2024-12-27 05:35] LABS: Amphetamines+Metham, Urine Neg (Neg); MDMA (Ecstacy), Urine Pos (Neg); Marijuana, Urine Neg (Neg)
[2024-12-27] MEDS: INSULIN ASPART PER UNIT CHARGE SC SCH ×2 (05:42→20:57)
[2024-12-27 05:57] LABS: Partial Thromboplastin Time 28 Seconds (21-31)
[2024-12-27] MEDS: LEVOTHYROXINE SODIUM 50 MCG TABLET PO SCH (06:46)
[2024-12-27] MEDS: ACETAMINOPHEN 325 MG TAB PO PRN (07:05)
[2024-12-27] MEDS: LOSARTAN POTASSIUM 50 MG TAB PO SCH (08:05)
[2024-12-27] MEDS: ATORVASTATIN 40 MG TAB PO SCH (08:05)
[2024-12-27] MEDS: ASPIRIN 81 MG ECTAB PO SCH (08:06)
[2024-12-27] MEDS: VENLAFAXINE HCL XR 37.5 MG CAPXR PO SCH (08:06)
[2024-12-27] MEDS: ENOXAPARIN INJ 40 MG/0.4 ML SYR SQ SCH (08:10)
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
--- NOTE | 2024-12-27 09:42 | Electrocardiogram Report ---
Test Reason : Blood Pressure : */* mmHG Vent. Rate : 70 BPM Atrial Rate : 70 BPM P-R Int : 150 ms QRS Dur : 100 ms QT Int : 452 ms P-R-T Axes : 33 44 87 degrees QTcB Int : 488 ms Normal sinus rhythm Low voltage QRS Prolonged QT Abnormal ECG When compared with ECG of 20-Dec-2024 20:50, Nonspecific T wave abnormality no longer evident in Inferior leads Nonspecific T wave abnormality, improved in Anterolateral leads Confirmed by Brien Pollard ([id number]) on 12/27/2024 9:41:59 AM Referred By: Angy SCI Confirmed By: Brien Pollard
[2024-12-27] MEDS: NIFEdipine EXTENDED REL 30 MG TABCR PO SCH (10:22)
[2024-12-27] MEDS: REMOVE LIDODERM PATCH ONE (13:25)
[2024-12-27] MEDS ORDERED: REMOVE LIDODERM PATCH SCH (21:00)
[2024-12-28] MEDS: MoRPHine SULFATE 4 MG/ML 1 ML CARP\\VIAL IV STA (01:53)
[2024-12-28] MEDS: NITROGLYCERIN SL 0.4 MG/TAB TAB SL PRN (02:17)
[2024-12-28] MEDS: HYDROmorphone INJ 0.5 MG/0.5 ML SYR IV STA (03:35)
[2024-12-28 06:20] LABS: Hematocrit (blood only) 38.3 % (42.0-52.0); Hemoglobin 13.1 g/dl (14.0-18.0); Mean Corpuscular Hemoglobin 32.4 pg (25.0-34.0); Mean Corpuscular Volume 94.8 fL (80.0-100.0); Platelet Count 451 K/uL (130-400); RDW Standard Deviation 45.7 fL (36.4-46.3); Red Blood Count 4.04 M/uL (4.70-6.10); White Blood Count 14.61 K/ul (4.8-10.8)
[2024-12-28 06:35] LABS: Anion Gap 7.0 (3-11); Blood Urea Nitrogen 19.0 mg/dl (6-23); Calcium 9.1 mg/dl (8.6-10.3); Carbon Dioxide 27.0 mmol/L (21-32); Chloride 105.0 mmol/L (98-107); Creatinine Clr Calc Pharmacy 78.0 ml/min; Glucose 99.0 mg/dl (70-99(Fasting)); Magnesium 1.9 mg/dl (1.7-2.4); Potassium 4.1 mmol/L (3.5-5.1); Sodium 139.0 mmol/L (136-145)
[2024-12-28] MEDS: METHOCARBAMOL 500 MG TABLET PO PRN (08:34)
[2024-12-28 08:47] VITALS: RESP 18; O2SAT 95
[2024-12-28] MEDS: SODIUM CHLORIDE 0.9% 500 ML IV ONE (08:55)
--- NOTE | 2024-12-28 09:07 | Electrocardiogram Report ---
Test Reason : Blood Pressure : */* mmHG Vent. Rate : 74 BPM Atrial Rate : 74 BPM P-R Int : 154 ms QRS Dur : 104 ms QT Int : 426 ms P-R-T Axes : 48 23 105 degrees QTcB Int : 472 ms Normal sinus rhythm Low voltage QRS Nonspecific T wave abnormality Abnormal ECG When compared with ECG of 26-Dec-2024 22:58, No significant change was found Confirmed by Brien Pollard ([id number]) on 12/28/2024 9:07:06 AM Referred By: Angy LÓPEZ Confirmed By: Brien Pollard
[2024-12-28] MEDS ORDERED: POLYETHYLENE (MIRALAX) 17 GM PACK PO SCH (11:45)
[2024-12-28] MEDS ORDERED: SENNA 8.6 MG TAB PO SCH (11:45)
--- NOTE | 2024-12-28 11:47 | Discharge Summary ---
Date of Service December 28, 2024 Admission HPI Per Admitting Provider History obtained from patient and records. Medical history significant for chronic diastolic heart failure (EF 60 to 65%, TTE 2024), CAD as per records, hypertension, hyperlipidemia, bradycardia, history of hemorrhagic CVA, REYNOLD, DM2 diet-controlled, hypothyroidism, chronic anemia (baseline hemoglobin 12-13), asplenia, bilateral renal cysts, right adrenal adenoma, mood disorder, past substance abuse, past tobacco abuse. Recent confinement last week for chest pain attributed to uncontrolled hypertension. MDMA noted in urine toxicology. Clonidine discontinued secondary to bradycardia. Hydralazine added to patient's regimen on discharge. Yesterday, patient experienced more intense left-sided chest pain going to the shoulder associated with palpitations. Achy headache symptoms. No cough or SOB. Some relief with nitroglycerin. SBP 220s at the [facility]. Patient claims blood pressure never checked upon return to facility up until yesterday. Patient brought to the ER for evaluation. Highest SBP of 210s documented at the ER. IV hydralazine and Nitropaste administered at the ER. SBP currently 160s. Medical History as above Surgical History : Vascular procedures, ex lap Family History : No DM, no heart disease Personal/Social history : Past tobacco abuse, no EtOH intake, prior construction work Admission Exam Per Admitting Provider GENERAL: Slightly uncomfortable, looks older for stated age, no respiratory distress SKIN: Pallor, warm HEENT: Pale palpebral conjunctivae, no ptosis, dry buccal mucosa NECK : Supple, no tenderness CHEST : CTA, no tenderness HEART : RRR, no obvious murmurs ABDOMEN: Some distention, nontender EXTREMITIES : No LE swelling/tenderness, palpable pulses, no other conspicuous deformities noted NEUROLOGIC : Coherent, no facial asymmetry, no other gross focality Principal Diagnosis Chest pain, hypertensive crisis Discharge Exam GENERAL: WD/WN adult M in NAD HEENT: NC/AT, no ptosis NECK : Supple CHEST : CTAB, + tenderness to palpation -improved HEART : RRR, no obvious murmurs ABDOMEN: Some distention, nontender, soft, + hernia, + well-healed scar EXTREMITIES : No LE swelling, moves extremities NEUROLOGIC : awake, alert, answers appropriately, no facial asymmetry, moves extremities SKIN: Pallor, warm Discharge Data Allergies Allergy/AdvReac Type Severity Reaction Status Date / Time Fish Containing Products Allergy Unknown Anaphylaxis Verified 12/19/24 18:37 Consultations 12/27/24 01:49 ED Decision to Admit Stat 12/27/24 05:01 Consult Cardiology Routine Ordered Studies 12/27/24 02:27 CT head/brain wo con Stat FINDINGS: The brain demonstrates normal morphology, attenuation, and volume for age. There is no evidence of space-occupying lesion, hemorrhage, edema, mass effect, midline shift, extra-axial collection, or hydrocephalus. The ventricles, sulci, and basal cisterns are symmetric and normal in size and configuration. Ventura-white matter differentiation is preserved. The visualized paranasal sinuses and mastoid air cells are well aerated. Orbital contents are within normal limits. Bony structures are intact. IMPRESSION: 1. No evidence of acute intracranial abnormality is demonstrated. Hospital Course (1) Chest pain: Chest pain Hypertensive crisis Rule out ACS, history of CAD Troponins negative, ECG w/o ischemic changes Cardiology consulted and discussed with - HTN urgency - better CP - atypical, DC R/O Substance use HLD Episodic asymptomatic sinus bradycardia MDMA is positive in drug screen which is associated with HTN and bradycardia Recommendations: substance use cessation including MDMA Simplify anti-HTN med regimen to improve compliance and better BP control. Discontinue Hydralazine, Amlodipine, NTG Start Procardia xl 60mg Daily and adjust dose keeping systolic BP between 100- 140 mmHg salt restriction stable from cardiac standpoint for discharge Pain reproducable on physical exam - cont. methocarbamol Slowly increase physical activity. Pt reports this happens when he has to climb up to his bed - perhaps he could be sleeping in lower positioned bed BP now well controlled, cont. to monitor after discharge Constipation - pt reports chronic constipation since he had abd. surgery. visible hernia on phys. exam, nontender - pt reports he was on stool softeners before, recommend daily stool softeners Other chronic conditions: chronic diastolic heart failure (EF 60 to 65%, TTE 2024), patient euvolemic hyperlipidemia, on statin Rx Episodic bradycardia history of hemorrhagic CVA REYNOLD DM2 diet-controlled, well-controlled recent hemoglobin A1c of 5.7 this month, ISS BG goal 110-140 while inpt hypothyroidism, euthyroid as of recent TSH chronic anemia, hemoglobin at baseline past substance abuse (MDMA on urine tox from last confinement) past tobacco abuse Total Time Total Time Spent Total Time Spent (In Minutes): 40 Discharge Plan Discharge Items Patient Disposition: [facility] Reason For Visit: CP Discharge Diagnosis: Chest pain, hypertensive crisis Condition on Discharge: Fair Activity: Per Instructions section Non-emergency contact: Primary Care Provider Call non-emergency contact if: you have any medication questions and your symptoms worsen Follow-up/Referrals: Angy LÓPEZ [Primary Care Provider] - Diet: Carb Consistent or DM2, Heart Healthy and Low Sodium (2gm) Addtl Attending Provider Instructions: Follow up with primary care physician. Your medications were changed . Stop taking hydralazine, amlodipine. Start taking Nifedipine (procardia) 60 mg daily. Monitor your blood pressure. Your medications may need to be further adjusted. Chest pain seems to be reproducable on palpation - recommend muscle relaxer. Also recommend to slowly increase your physical activity. Constipation - recommend daily stool softeners. Pending Studies at Discharge: No Skilled Items Patient informed of condition?: Yes DNR: No Discharge Level of Care: Other Communicable Disease: No Discharge Prognosis: Stable Lines: None Urinary Catheter: No Medications and DC Order Prescriptions: New nifedipine [Procardia XL] 30 mg Tablet Extended Release 24hr 60 mg PO QAM Qty: 60 0RF polyethylene glycol 3350 [Miralax] 17 gram Powder In Packet 17 g PO DAILY Qty: 14 0RF sennosides [Senna Lax] 8.6 mg Tablet 8.6 mg PO QAM Qty: 14 0RF Continued venlafaxine [Effexor XR] 37.5 mg Capsule,Extended Release 24hr 37.5 mg PO DAILY trazodone 100 mg Tablet 300 mg PO HS levothyroxine 50 mcg Tablet 50 mcg PO DAILY furosemide [Lasix] 20 mg Tablet 20 mg PO DAILY losartan 100 mg Tablet 100 mg PO DAILY aspirin 81 mg Tablet,Delayed Release (Dr/Ec) 81 mg PO DAILY Qty: 30 0RF methocarbamol 500 mg Tablet 500 mg PO TID PRN (Reason: chest pain) Qty: 90 0RF atorvastatin 40 mg tablet 40 mg PO DAILY Discontinued amlodipine 10 mg Tablet 10 mg PO DAILY hydralazine 25 mg Tablet 25 mg PO QID Qty: 120 0RF Admission Data Admit Date/Time: 12/27/24 03:39 Attending Provider: Tomás Elizabeth Admit Provider: Lewis Stover Primary Care Provider: Angy LÓPEZ Other Providers: Lewis Stover; Mary Tavarez; Rg Key; Brandon Perez; Willy Bravo; Serjio Doty; Fer Raygoza; Elida Salgado; Maryellen Felipe; Makenzie Veloz; Milena Marie; Mary Silva; Ronnie Borjas; Ariel Zuniga; Darcy Selby; Olga Casiano; Neli Gan; Elaine Wells; Johnson Bentley; Lois Ceballos; Lilian Vincent; Moises Cedillo; Arcadio Alonso N
[2024-12-28 12:38] VITALS: BP 121/70; PULSE 57; TEMP 97.5
--- NOTE | 2024-12-29 13:37 | Electrocardiogram Report ---
Test Reason : Blood Pressure : */* mmHG Vent. Rate : 77 BPM Atrial Rate : 77 BPM P-R Int : 150 ms QRS Dur : 102 ms QT Int : 430 ms P-R-T Axes : 41 21 90 degrees QTcB Int : 486 ms Normal sinus rhythm QTcB >= 480 msec Abnormal ECG When compared with ECG of 28-Dec-2024 01:26, No significant change was found Confirmed by Brien Pollard ([id number]) on 12/29/2024 1:37:25 PM Referred By: Angy [facility] Confirmed By: Brien Pollard
[2024-12-31 08:57] LABS: Hydrocodone Urine NEGATIVE ng/mL (<50); Hydromor Urine NEGATIVE ng/mL (<50); MDA negative; MDEA negative; MDMA (Ecstasy) Urine, Confirm negative; Noroxycodone Urine NEGATIVE ng/mL (<50); Oxymorph Urine NEGATIVE ng/mL (<50)
== END 2024-12-28 14:41 ==
LOC: EDINP 22:52 → ED 22:52 → 4W 12-27 17:40

== ENCOUNTER 2025-01-06 19:29 | Observation (INO) ==
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
[2025-01-06 20:07] LABS: Hematocrit (blood only) 38.3 % (42.0-52.0); Hemoglobin 13.5 g/dl (14.0-18.0); Immature Granulocytes # (auto) 0.02 K/uL (0.01-0.20); Immature Granulocytes % (auto) 0.2 %; Mean Corpuscular Hemoglobin 32.8 pg (25.0-34.0); Mean Corpuscular Volume 93.2 fL (80.0-100.0); Platelet Count 483 K/uL (130-400); RDW Standard Deviation 43.4 fL (36.4-46.3); Red Blood Count 4.11 M/uL (4.70-6.10); White Blood Count 9.38 K/ul (4.8-10.8)
[2025-01-06] MEDS: ASPIRIN 81 MG CHEW PO STA (20:16)
[2025-01-06] MEDS: NITROGLYCERIN SL 0.4 MG/TAB TAB SL PRN (20:17)
--- NOTE | 2025-01-06 20:23 | XRay Report ---
EXAM: Portable AP chest radiograph TECHNIQUE: AP portable radiograph of the chest was obtained. INDICATION: Chest pain Comparison: Chest radiograph December 26, 2024 FINDINGS: LINES and TUBES: None CARDIOVASCULAR: Cardiac silhouette is stably and mildly enlarged in size. LUNGS/PLEURA: No focal consolidation identified. Chronic interstitial lung changes. Mild peribronchial cuffing. No significant pleural fluid. No discernible pneumothorax. OSSEOUS/OTHER: No displaced acute osseous process identified. Embolization material in the left upper abdomen. IMPRESSION: Unchanged mild cardiac silhouette enlargement. Chronic interstitial lung changes. Mild peribronchial cuffing may be due to bronchiolitis Electronically signed by Manjit Soares 01-06-2025 8:23 PM
[2025-01-06 20:26] LABS: Alanine Aminotransferase 17.0 U/L (7-52); Albumin Globulin Ratio 1.5 (0.9-2); Albumin Level 4.1 gm/dl (3.4-5.0); Alkaline Phosphatase 72.0 U/L (34-104); Anion Gap 6.0 (3-11); Bilirubin,Total 0.4 mg/dl (0.2-1.0); Blood Urea Nitrogen 24.0 mg/dl (6-23); Calcium 9.5 mg/dl (8.6-10.3); Carbon Dioxide 28.0 mmol/L (21-32); Chloride 104.0 mmol/L (98-107); Creatinine Clr Calc Pharmacy 69.5 ml/min; Globulin 2.7 gm/dl (2.5-4.0); Glucose 110.0 mg/dl (70-99(Fasting)); Lipase 23.0 U/L (11-82); Potassium 4.3 mmol/L (3.5-5.1); Sodium 138.0 mmol/L (136-145); Total Protein 6.8 gm/dl (6.0-8.3)
[2025-01-06] MEDS: MoRPHine SULFATE 4 MG/ML 1 ML CARP\\VIAL IV STA (21:47)
[2025-01-06] MEDS ORDERED: ACETAMINOPHEN 325 MG TAB PO PRN (21:52)
[2025-01-06] MEDS ORDERED: LORazepam 0.5 MG TAB PO PRN (21:52)
[2025-01-06] MEDS ORDERED: PROMETHAZINE 6.25 MG/50.25 ML BAG IV PRN (21:52)
[2025-01-06] MEDS ORDERED: MoRPHine SULFATE 4 MG/ML 1 ML CARP\\VIAL IV PRN (21:52)
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
[2025-01-06 22:31] LABS: Partial Thromboplastin Time 27 Seconds (21-31)
[2025-01-06] MEDS: NIFEdipine EXTENDED REL 30 MG TABCR PO STA (22:43)
[2025-01-06] MEDS ORDERED: POLYETHYLENE (MIRALAX) 17 GM PACK PO PRN (22:58)
[2025-01-06] MEDS: SODIUM CHLORIDE 0.9% 1,000 ML IV ONE (23:29)
[2025-01-07] MEDS: LEVOTHYROXINE SODIUM 50 MCG TABLET PO SCH (05:38)
[2025-01-07 07:12] LABS: Hematocrit (blood only) 39.2 % (42.0-52.0); Hemoglobin 13.6 g/dl (14.0-18.0); Immature Granulocytes # (auto) 0.04 K/uL (0.01-0.20); Immature Granulocytes % (auto) 0.3 %; Mean Corpuscular Hemoglobin 32.5 pg (25.0-34.0); Mean Corpuscular Volume 93.8 fL (80.0-100.0); Platelet Count 498 K/uL (130-400); RDW Standard Deviation 44.2 fL (36.4-46.3); Red Blood Count 4.18 M/uL (4.70-6.10); White Blood Count 13.60 K/ul (4.8-10.8)
[2025-01-07 07:31] LABS: Anion Gap 8.0 (3-11); Blood Urea Nitrogen 21.0 mg/dl (6-23); Calcium 8.9 mg/dl (8.6-10.3); Carbon Dioxide 25.0 mmol/L (21-32); Chloride 106.0 mmol/L (98-107); Creatinine Clr Calc Pharmacy 81.2 ml/min; Glucose 129.0 mg/dl (70-99(Fasting)); Potassium 3.9 mmol/L (3.5-5.1); Sodium 139.0 mmol/L (136-145)
[2025-01-07 07:35] LABS: Partial Thromboplastin Time 28 Seconds (21-31)
[2025-01-07] MEDS: ASPIRIN 81 MG ECTAB PO SCH (08:06)
[2025-01-07] MEDS: NIFEdipine EXTENDED REL 30 MG TABCR PO SCH (08:06)
[2025-01-07] MEDS: ATORVASTATIN 40 MG TAB PO SCH (08:06)
[2025-01-07] MEDS: ENOXAPARIN INJ 40 MG/0.4 ML SYR SQ SCH (08:06)
[2025-01-07] MEDS: LOSARTAN POTASSIUM 50 MG TAB PO SCH (08:06)
[2025-01-07] MEDS: VENLAFAXINE HCL XR 37.5 MG CAPXR PO SCH (08:06)
[2025-01-07] MEDS: SENNA 8.6 MG TAB PO SCH (08:07)
[2025-01-07] MEDS ORDERED: INFLUENZA VACC TS2025-26(6m+)/PF (IIV3) 0.5mL Syr IM ONE (09:00)
[2025-01-07] MEDS ORDERED: PNEUMOCOCCAL VACCINE (PCV20) 20-VAL CONJ-DIP CRM/PF 0.5 ML SYR IM ONE (09:00)
[2025-01-07] MEDS ORDERED: LOSARTAN POTASSIUM 50 MG TAB PO SCH (09:00)
--- NOTE | 2025-01-07 09:34 | Hospitalist Progress Note ---
Date of Service January 07, 2025 Assessment & Plan (1) Chest pain: Plan: Patient is a 54 year old male with past medical history of NSTEMI, HFrEF, CAD, CVA, DM Type II, hypothyroidism presenting to the ED with chest pain that began yesterday evening. He experienced achy, midsternal chest pain with radiation to left arm associated with shortness of breath yesterday evening. Was given nitro and morphine with mild improvement. History of IN and did not have a stent placed.Monthly admissions since November 2024 for chest pain and uncontrolled hypertension. #Atypical Chest pain #Secondary to uncontrolled hypertension * Admit to PCU for monitoring * history of hemorrhagic CVA * Reproducible chest pain, 12/29, midsternal w/ complaint shortness of breath w/o hypoxia * Nitro given x 1 this morning for radiating CP; BP 149/89 at the time; no relief of chest pain; EKG normal and unchanged * Trop 11.9->14.3; 15.5 today * Echo 12/20/24 showing LVEF 60-65%, moderate LVH, no valvular dx-> will obtain a limited Echo today given CP complaint * ESR/CRP ordered for r/o inflammatory process-> normal levels * Cardiology consulted today-> CP reproducible, non cardiac in nature; increased nifedipine dose for persistent HTN w/ home routine; cards signed off * Chest Xray on admission showing peribronchial cuffing likely d/t bronchiolitis; denies cough, congestion #Urinary retention * difficult voiding w/ urge; bladder scan >887 ml urine; straight cath today w/ + results * Flomax added * Will bladder scan Q shift; if additional straight cath needed, will consider placing up cath #Chronic diastolic heart failure #History of CAD as per records * Euvolemic on admission; now w/ urinary retention-> see above * On Lasix daily- resumed; renal functioning stable Creatinine 1.16 * Continue home aspirin #Episodic bradycardia * Orlin episodes overnight * D dimer 230 on admission * EKG showing NSR * Continue tele monitoring #Substance abuse * UDS pos opiates, morphine + MDMA on 12/27 last admission; patient on Trazadone chronically * Denies drug use currently-> UDS collected today w/o change; low suspicion for withdrawal as chest pain etiology #Hyperlipidemia * on statin #DM2 * diet-controlled, well-controlled * recent hemoglobin A1c of 5.7 this month * SSI with BSG goal 110-140 * serum glucose 129 this morning-> trend #Hypothyroidism, * euthyroid as of recent TSH * Continue levothyroxine #Chronic anemia * hemoglobin at baseline 13.6 today * Pancytopenia noted on lab workup this morning-> blood smear pending DVT Ppx: Lovenox Code status: Full code PCP: Angy LÓPEZ Dispo: Obs Patient seen in collaboration with Dr. Jules. Please see addendum.I spent a total of 35 minutes coordinating, documenting and providing care for this patient excluding time spent in the performance of separately billed services or time spent by another provider/QHP. Admission and Anticipated Discharge Date Admission Date: January 06, 2025 Supervising Physician Co-Signing Physician Notes Patient is seen and examined at bedside. States having intermittent chest pain associated with shortness of breath. Cardiac enzymes negative. Limited echo pending. Denies any recent respiratory infection. Was noted to have urinary retention. On exam patient is well-built and nourished, no apparent distress, normocephalic atraumatic, EOMI, normal breath sounds, clear to auscultation, S1- S2, no murmur, no pedal edema, abdomen soft, nontender, normal bowel sounds, alert, awake, oriented, grossly no focal deficits.Patient is currently being managed for chest pain likely secondary to hypertensive urgency, ? Compliance. Increased Procardia to 90 mg daily. Continue losartan 100 mg daily. Also on Lasix 20 mg daily. Given urinary retention, will also start on Flomax. Appreciate cardiology input. If noted to have persistent urinary retention, will place Up catheter. Will refer to follow-up with urology as outpatient. Patient was also noted to have chronic leukocytosis with polychromasia, And Hymer bodies, [place] bodies, acanthocytes. Peripheral smear pending. Will likely benefit from hematology evaluation as outpatient. Will likely discharge tomorrow if blood pressure remains stable. I personally interviewed and examined the patient at bedside. I have reviewed the advanced practitioner's documentation on the date of service referred in note and agree with plan. Patient's care is coordinated with Keisha IRAHETA. Please refer to the documentation above for details of patient's presentation and for discussion of other issues. I spent a total [id number] coordinating, documenting, and providing care for this patient excluding time spent in the performance of separately billed services or time spent by another provider/QHP. Subjective Patient seen and examined at bedside. Reporting left chest pain, 12/29, "tight" feeling. Worse with palpation. Endorses shortness of breath with exertion. Nitro given this morning with no chest pain relief. 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 Review of Systems Review of Systems: All systems reviewed & are unremarkable except as noted in Subjective Physical Exam Physical Exam: VITALS: Reviewed. WEIGHT/BMI reviewed. GEN: Healthy appearing, well-developed, NAD. PSYCH: Good Judgment. AOx3. Normal memory, mood, and affect. HEENT -Head: NC/AT; -Eyes: PERRL, EOMI. No discharge or redn ess; -Ears: External ears are normal. -Nose: Normal nares. -Mouth and throat: MMM. Normal gums, muc marta, palate,. Good dentition. NECK: Supple, with no masses. CV: S1, S2 without murmur, clicks, or extra beats, no peripheral swelling, no cough, reproducible chest pain LUNGS: Clear and equal, diminished to bases, no cough ABD: Soft, NT/ND, NBS, no masses or organomegaly. : N/A SKIN: Warm, well perfused. No skin rashes or abnormal lesions. MSK: No deformities, Normal gait. EXT: No clubbing, cyanosis, or edema. NEURO: CN II-XII grossly intact. No focal deficits. Results & Data Results & Data Vital Signs (Past 12 Hours) Vital Signs Temp Pulse Pulse Resp BP BP Pulse Ox 01/07/25 08:54 60 16 149/89 H 95 01/07/25 07:43 36.3 C L 58 L 20 150/94 H 92 01/07/25 05:38 163/83 H 01/07/25 04:52 158/102 H 01/07/25 04:19 54 L 01/07/25 02:49 36.7 C 63 21 175/101 H 97 01/07/25 00:59 70 16 183/104 H 95 01/06/25 23:49 01/06/25 22:30 54 L 13 153/110 H 93 01/06/25 21:57 72 14 95 O2 Del Method 01/07/25 08:54 Room Air 01/07/25 07:43 Room Air 01/07/25 05:38 01/07/25 04:52 01/07/25 04:19 01/07/25 02:49 Room Air 01/07/25 00:59 Room Air 01/06/25 23:49 Room Air 01/06/25 22:30 01/06/25 21:57 Laboratory Results Short CBC 01/06/25 01/07/25 Range/Units 19:42 06:14 WBC 9.38 13.60 H (4.8-10.8) K/ul Hgb 13.5 L 13.6 L (14.0-18.0) g/dl Hct 38.3 L 39.2 L (42.0-52.0) % Plt Count 483 H 498 H (130-400) K/uL BMP 01/06/25 01/07/25 19:42 06:14 Sodium 138 139 Potassium 4.3 3.9 Chloride 104 106 Carbon Dioxide 28 25 BUN 24 H 21 Creatinine 1.40 1.16 Glucose 110 H 129 H Calcium 9.5 8.9 Liver Function 01/06/25 Range/Units 19:42 Total Bilirubin 0.4 (0.2-1.0) mg/dl AST 18 (13-39) U/L ALT 17 (7-52) U/L Alkaline Phosphatase 72 (34-104) U/L Albumin 4.1 (3.4-5.0) gm/dl
[2025-01-07 09:56] LABS: Acanthocytes 2+; Howell-Jolly Bodies 1+; Polychromasia 1+
[2025-01-07] MEDS ORDERED: CARBOHYDRATES FOR HYPOGLYCEMIA PO PRN (10:00)
[2025-01-07] MEDS ORDERED: GLUCAGON FOR INJ 1 MG VIAL SQ PRN (10:00)
[2025-01-07] MEDS ORDERED: DEXTROSE 50% 50 ML SYRINGE IV PRN (10:00)
[2025-01-07] MEDS ORDERED: GLUCOSE 40% GEL 15 GM TUBE PO PRN (10:00)
[2025-01-07] MEDS ORDERED: GLUCOSE 10 TAB/TUBE PO PRN (10:00)
[2025-01-07 11:56] LABS: Appearance Urine Clear (Clear); Glucose Urine UA Negative (Negative)
[2025-01-07] MEDS: INSULIN ASPART PER UNIT CHARGE SC SCH (12:08)
[2025-01-07 12:48] LABS: Amphetamines+Metham, Urine Neg (Neg); MDMA (Ecstacy), Urine Pos (Neg); Marijuana, Urine Neg (Neg)
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
[2025-01-07] MEDS: TAMSULOSIN HCL 0.4 MG CAP PO ONE (13:52)
[2025-01-07] MEDS: MoRPHine SULFATE 4 MG/ML 1 ML CARP\\VIAL IV PRN (14:03)
--- NOTE | 2025-01-07 15:37 | XCELERA ---
[id number] [id number]
--- NOTE | 2025-01-07 19:33 | Electrocardiogram Report ---
Test Reason : Blood Pressure : */* mmHG Vent. Rate : 60 BPM Atrial Rate : 60 BPM P-R Int : 154 ms QRS Dur : 100 ms QT Int : 472 ms P-R-T Axes : 36 46 112 degrees QTcB Int : 472 ms Normal sinus rhythm Low voltage QRS Abnormal ECG When compared with ECG of 06-Jan-2025 19:36, (unconfirmed) Vent. rate has decreased by 33 bpm Confirmed by Richard Jameson ([id number]) on 01/07/2025 7:32:52 PM Referred By: Angy SCI Confirmed By: Richard Jameson
--- NOTE | 2025-01-07 19:52 | Electrocardiogram Report ---
Test Reason : Blood Pressure : */* mmHG Vent. Rate : 93 BPM Atrial Rate : 93 BPM P-R Int : 154 ms QRS Dur : 96 ms QT Int : 370 ms P-R-T Axes : 53 46 85 degrees QTcB Int : 460 ms Normal sinus rhythm Normal ECG When compared with ECG of 28-Dec-2024 03:18, No significant change was found Confirmed by Richard Jameson ([id number]) on 01/07/2025 7:51:42 PM Referred By: Angy [facility] Confirmed By: Richard Jameson
[2025-01-07] MEDS: SODIUM CHLORIDE 0.9% 500 ML IV ONE (22:29)
[2025-01-07] MEDS: ACETAMINOPHEN 1,000 MG/100 ML VIAL IV STA (22:31)
[2025-01-08 06:35] LABS: Hematocrit (blood only) 37.3 % (42.0-52.0); Hemoglobin 12.5 g/dl (14.0-18.0); Mean Corpuscular Hemoglobin 31.1 pg (25.0-34.0); Mean Corpuscular Volume 92.8 fL (80.0-100.0); Platelet Count 479 K/uL (130-400); RDW Standard Deviation 43.7 fL (36.4-46.3); Red Blood Count 4.02 M/uL (4.70-6.10); White Blood Count 10.32 K/ul (4.8-10.8)
--- NOTE | 2025-01-08 06:47 | Electrocardiogram Report ---
Test Reason : Blood Pressure : */* mmHG Vent. Rate : 63 BPM Atrial Rate : 63 BPM P-R Int : 154 ms QRS Dur : 98 ms QT Int : 464 ms P-R-T Axes : 63 44 92 degrees QTcB Int : 474 ms Normal sinus rhythm Low voltage QRS Nonspecific T wave abnormality Abnormal ECG When compared with ECG of 07-Jan-2025 09:04, No significant change was found Confirmed by Brijesh Fernando ([id number]) on 01/08/2025 6:47:38 AM Referred By: Angy LÓPEZ Confirmed By: Brijesh Fernando
[2025-01-08 07:06] LABS: Anion Gap 7.0 (3-11); Blood Urea Nitrogen 19.0 mg/dl (6-23); Calcium 8.7 mg/dl (8.6-10.3); Carbon Dioxide 26.0 mmol/L (21-32); Chloride 108.0 mmol/L (98-107); Creatinine Clr Calc Pharmacy 81.3 ml/min; Glucose 79.0 mg/dl (70-99(Fasting)); Magnesium 2.0 mg/dl (1.7-2.4); Potassium 3.8 mmol/L (3.5-5.1); Sodium 141.0 mmol/L (136-145)
[2025-01-08] MEDS: FUROSEMIDE 20 MG TAB PO SCH (08:05)
[2025-01-08] MEDS: TAMSULOSIN HCL 0.4 MG CAP PO SCH (08:07)
[2025-01-08 12:14] VITALS: PULSE 65; RESP 21; TEMP 97.9; O2SAT 96
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
[2025-01-08 13:00] VITALS: BP 136/76
== END 2025-01-08 16:02 ==
LOC: ED 19:29 → 2S 19:29 → SUATTDRO 22:07 → 2S 23:49